=== PATIENT | female | born 1965 | race African-American/Black ===

== ENCOUNTER 2021-01-20 18:19 | Inpatient (IN) | payer MEDICARE, MEDICAID ==
[~2021-01-20] VITALS: Ht 157.5 cm; Wt 88.7 kg
--- NOTE | ~2021-01-20 | HEMODYNAMI ---
PATIENT:RACQUEL COPPOLA MEDICAL RECORD: [id number] : 63 LOCATION:[place] [address] ADMISSION DATE: 01/20/21 Generatedon:115:25 Patient name: RACQUEL COPPOLA Patient #: [id number] SS N: : 1965 Date of study: 01/25/2021 Page: Of Hemodynamic Procedure Report Patient Data Patient Demographics Procedure consent was obtained First Name: RACQUEL Gender: Female Last Name: ABDON : 1965 Patient #: [id number] Age: 55 year(s) Race: Black Additional ID: [id number] Contact details [address]: [address] [place] [address] State: [place] City: [place] Zip code: [address] Past Medical History Allergies Allergen Reaction Date Comments Reported Aspirin 01/25/2021 Other allergy 01/25/2021 cillins, Admission Admission Data Admission Date: 01/20/2021 Admission Time: 22:18 Room #: [facility] Procedure Procedure Types Cath Procedure Peripheral Cath Diagnostic Procedure Venography Extremity Left Upper Ext. Venagram Procedure Description Procedure Date Procedure Date: 01/25/2021 Procedure Start Time: 15:17 Procedure Staff Name Function Charlotte Mullins MD Performing Physician Nola Ríos RT Email Marketing Executive Nancy Mederos RN Nurse Dallas Platt RT Scrub Hemodynamics Rest Pre Cath Intra NCS Post Cath Procedure Log Time Note 14:48:32 Use device set IR Diagnostic 14:48:33 Tegaderm 4 x 4 (1626W) opened to sterile field. 14:48:34 Sterile Angiographic Pack opened to sterile field. 14:48:35 Bag Decanter () opened to sterile field. 14:48:49 - 14:59:08 Time tracking: Regular hours (M-F 7:00 - 5:00) 14:59:25 Plan of Care:Hemodynamics will remain stable., Cardiac rhythm will remain stable., Comfort level will be maintained., Respiratory function will remain adequate., Patient/ family verbilizes understanding of procedure., Procedure tolerated without complication., Recovers from procedure without complications.. 14:59:35 Patient received from XYZE II to IR Alert and oriented. Tansferred to table in Supine position. 14:59:41 Signed procedure consent form obtained from patient. 14:59:47 H&P Date Dictated: 01/25/2021 Within 30 days and on chart.. 14:59:49 Pre-procedure instructions explained to patient. 14:59:49 Pre-op teaching completed and patient verbalized understanding. 14:59:52 Family unavailable. 14:59:54 Patient NPO since Midnight. 15:00:04 Patient allergic to Aspirin 15:00:28 Patient allergic to Other allergycillins, 15:02:10 Patient diabetic? Yes. 15:02:13 If diabetic: On Metformin? No 15:02:14 - 15:02:16 ----Pre-sedation anethsthesia assessment.---- 15:02:21 Previous problem with sedation/anesthesia? No ? 15:02:25 Snore? Yes 15:02:27 Sleep apnea? No 15:02:30 Deviated septum? No 15:02:35 Opens mouth fully? Yes 15:02:37 Sticks out tongue? Yes 15:02:43 Airway obstruction? Yes asthma 15:02:50 Dentures? No ? 15:02:58 Left Arm area was prepped with chlora-prep and draped in sterile leanno n 15:03:00 Alarms reviewed by Eduardo Yap 15:03:02 - 15:04:20 Micropuncture VSI 4FR kit opened to sterile field. 15:17:07 Physician arrived 15:17:08 --------ALL STOP TIME OUT------ 15:17:09 Final Timeout: patient, procedure, and site verified with staff and physician. All members of the team are in agreement. 15:17:25 Fire Safety Assessment: A--An alcohol-based skin anteseptic being used preoperatively., C--Open oxygen or nitrous oxide is being used. 15:17:30 Procedure started. 15:17:30 Full Disclosure recording started 15:17:36 Local anesthetic to left arm with Lidocaine 1% by Charlotte Mullins MD.INITIAL ACCESS ONLY 15:24:46 patient asked for procedure to be stopped. dr. mullins aborted procedure 15:24:51 Procedure ended.(Physican Out) Device Usage Item Name Manufacture Quantity Catalog Hospital Part Current [facility] l Lot# / Number Charge Number Stock Stock Serial# Code Tegaderm 4 x 3M 1 [id number] 4 (1626W) Sterile Cardinal 1 [id number] 5 Angiographic Health Pack Bag Decanter Microtek 1 [id number] [id number] 5 () [employer] Micropuncture VSI VASCULAR 1 [id number] 5 VSI 4FR kit SOLUTIONS Signature Audit Burke Stage Time Signature Unsigned Intra-Procedure 01/25/2021 Nola Ríos 3:25:43 PM RT(R) [facility] [address] [place] [address]
--- NOTE | ~2021-01-20 | EC ---
PATIENT:RACQUEL COPPOLA DATE OF SERVICE: 01/20/21 SEX: F MEDICAL RECORD: [id number] DATE OF : 63 LOCATION:D.M2 D.213 AGE OF PATIENT: 55 ADMISSION DATE: 01/20/21 REFERRING PHYSICIAN: INTERPRETING PHYSICIAN: JERILYN DUNLAP MD ECHOCARDIOGRAM REPORT ECHO CHARGES 4 ECHO COMPLETE Date: 01/23/21 CLINICAL DIAGNOSIS: MRSA ECHOCARDIOGRAPHIC MEASUREMENTS (adult normal given) AC root (d.<3.7cm) 2.3 cm LV Septum d (<1.2 cm> 1.1 cm Valve Excursion 1.2 cm LV Septum (systole) 1.4 cm Left Atria (s.<4.0cm> 3.3 cm LVPW d(<1.2cm) 1.2 cm RV (d.<2.3cm) 2.3 cm LVPW (sytole) 1.7 cm LV diastole(<5.6CM) 3.9 cm MV E-F(>70mm/sec) cm LV systole 2.0 cm LVOT Diameter 1.6 cm MV exc.(>10mm) cm Est.ejection fraction (50-75%) % DOPPLER: LVIT cm/sec A 128 cm/sec E 100 cm/sec LA cm/sec RVSP 42.0 mmHg LVOT 90.0 cm/sec AOP1/2T m/s Asc. Ao 150 cm/sec RVOT 62.0 cm/sec RA cm/sec PA 105 cm/sec AV Gradient Peak 9.0 mmHg AV Mean 4.8 mmHg AV Area 1.2 cm MV Gradient Peak 7.2 mmHg MV Mean 3.3 mmHg MV Area cm COMMENTS: Face Painter: Patricio BEASLEYOE Refrigeration Engine Operator: 5 Dr. Dunlap TAPE# PACS Pericardial Effusion N DATE OF SERVICE: 01/23/2021 CLINICAL DIAGNOSIS: Methicillin-resistant Staphylococcus aureus. INTERPRETATION: Normal left ventricular chamber size and contractile function with ejection fraction of 55% to 60%. Left atrial chamber appears normal. Right atrium and right ventricular chamber size and function appears normal. Aortic valve not well visualized, but appears normal, no aortic stenosis/regurgitation. Mitral valve appears normal. Trace mitral regurgitation. Tricuspid valve appears normal. Trace tricuspid regurgitation. ECHOCARDIOGRAM REPORT [id number] RACQUEL COPPOLA Pulmonic valve not well visualized, but appears normal. No pulmonary regurgitation. No pericardial effusion visualized. IMPRESSION: Normal left ventricular chamber size and contractile function with ejection fraction of 55% to 60%. TRANSINT:[id number] Voice Confirmation ID: [id number] DOCUMENT ID: [id number] JERILYN DUNLAP MD CC: [id number] DICTATION DATE: 01/23/21 1337 OPAL MINER: 01/23/212020 ADM IN [facility] [address] [place] [id number]
[2021-01-20] MEDS ORDERED: KLONOPIN0.5 MG PO (18:36)
[2021-01-20] MEDS ORDERED: ZYLOPRIM300 MG PO (18:36)
[2021-01-20] MEDS ORDERED: LIPITOR10 MG PO (18:36)
[2021-01-20] MEDS ORDERED: COLACE100 MG PO (18:37)
[2021-01-20] MEDS ORDERED: OMEPRAZOLE20 M1 PO (18:37)
[2021-01-20] MEDS ORDERED: HUMULIN 70100 UNIT/1 (18:37)
[2021-01-20] MEDS ORDERED: MULTI-DAY VITAM1 TAB PO (18:38)
[2021-01-20] MEDS ORDERED: LEVEMIR IN100 UNITS/ (18:38)
[2021-01-20] MEDS ORDERED: GABAPENTIN100 MG PO (18:38)
[2021-01-20] MEDS ORDERED: AMITRIPTYLINE100 MG PO (18:39)
[2021-01-20] MEDS ORDERED: ASCORBIC ACID500 MG PO (18:40)
[2021-01-20] MEDS ORDERED: METOPROLOL TART25 MG PO (18:40)
[2021-01-20] MEDS ORDERED: MECLIZINE HCL25 MG PO (18:40)
[2021-01-20 19:43] LABS: BASOPHILS 0.5 % (0-2); EOSINOPHILS 0.3 % (0-7); HEMOGLOBIN 8.7 g/dL (12-16); LYMPHOCYTES 17.1 % (15-50); MCHC 30.1 g/dL (31.0-37.0); MCV 76.5 fL (80.0-100.0); MEAN PLATELET VOLUME 7.8 fL (7.4-10.4); MONOCYTES 10.2 % (2-11); NEUTROPHILS 71.9 % (40-80); PLATELET COUNT 209 10x3/uL (130-400); RDW 20.4 % (11.5-14.5); WBC 14.5 10x3/uL (4.8-10.8)
[2021-01-20 20:00] LABS: CALC OSMOLALITY 299 mosm/kg (275-300); CALCIUM 8.5 mg/dL (8.5-10.1); CARBON DIOXIDE 26.8 mmol/L (21.0-32.0); CHLORIDE - SERUM 100 mmol/L (98-107); CREATININE - SERUM 8.9 mg/dL (0.6-1.3); GLUCOSE 265 mg/dL (74-106); POTASSIUM - SERUM 3.6 mmol/L (3.5-5.1); SODIUM 139 mmol/L (136-145); UREA NITROGEN 48 mg/dL (7-18); eGFR NON AFRICAN AMERICAN 5 mL/min (90-120)
[2021-01-20 20:16] LABS: ALBUMIN 2.3 g/dL (3.4-5.0); ALKALINE PHOSPHATASE 69 U/L (30-120); ALT (SGPT) 7 U/L (10-68); CKMB 0.1 U/L (0.0-3.6); CREATINE KINASE 36 UL (21-215); PRO BNP 4203 pg/mL (0-125); PROTEIN - SERUM 7.6 g/dL (6.4-8.2)
[2021-01-20 20:19] LABS: TROPONIN-I < 0.017 ng/mL (0.000-0.060)
[2021-01-20 20:30] VITALS: BP 121/72
[2021-01-20 21:24] LABS: SARS-CoV-2 ANTIGEN NEGATIVE- SARS-COV-2 (NEGATIVE)
[2021-01-20 21:31] VITALS: BP 120/75
[2021-01-20 22:30] VITALS: BP 110/66
[2021-01-20] MEDS ORDERED: PROTONIX20 MG PO (23:52)
[2021-01-20] MEDS ORDERED: ELIQUIS5 MG PO (23:52)
[2021-01-20] MEDS ORDERED: GABAPENTIN300 MG PO (23:52)
[2021-01-20] MEDS ORDERED: PERCOCET 10-321 EAC1 PO (23:53)
[2021-01-20] MEDS ORDERED: ULTRAM50 MG PO (23:54)
[2021-01-20] MEDS ORDERED: TOUJEO SOL300 UNIT/1 SC (23:55)
[2021-01-20] MEDS ORDERED: PHOSLO667 MG PO (23:55)
[2021-01-20] MEDS ORDERED: HYDROXYZINE HCL50 MG PO (23:56)
[2021-01-20] MEDS ORDERED: KENALOG 0.1 % 115 GM TOPICAL (23:57)
[2021-01-20] MEDS ORDERED: LASIX40 MG PO (23:58)
[2021-01-21 02:18] LABS: CKMB 0.1 U/L (0.0-3.6); CREATINE KINASE 38 UL (21-215); TROPONIN-I < 0.017 ng/mL (0.000-0.060)
[2021-01-21 05:10] VITALS: BP 100/67; BMI 33.9
[2021-01-21 07:23] LABS: BASOPHILS 0.3 % (0-2); EOSINOPHILS 0.9 % (0-7); HEMATOCRIT 27.1 % (36.0-48.0); HEMOGLOBIN 8.4 g/dL (12-16); LYMPHOCYTES 12.9 % (15-50); MCH 23.7 pg (26.0-34.0); MCV 76.5 fL (80.0-100.0); MEAN PLATELET VOLUME 7.6 fL (7.4-10.4); MONOCYTES 10.8 % (2-11); NEUTROPHILS 75.1 % (40-80); PLATELET COUNT 223 10x3/uL (130-400); RBC 3.54 10x6/uL (4.00-5.40); RDW 20.3 % (11.5-14.5); WBC 12.2 10x3/uL (4.8-10.8)
--- NOTE | 2021-01-21 07:40 | NUR ---
Lying in bed with eyes closed, respirations slow/deep/even, rouses easily with verbal stimulus, T/R self ad calvin, cont of B/B with BRPs per self ad calvin, c/o sharp shoulder pain rated 10/10, medicated as ordered (see MAR), call light/phone/water within reach, no s/s of acute distress observed.
[2021-01-21 07:55] LABS: ALBUMIN 2.3 g/dL (3.4-5.0); ALKALINE PHOSPHATASE 72 U/L (30-120); ALT (SGPT) 8 U/L (10-68); CALCIUM 8.9 mg/dL (8.5-10.1); CARBON DIOXIDE 23.9 mmol/L (21.0-32.0); CHLORIDE - SERUM 103 mmol/L (98-107); CKMB 0.2 U/L (0.0-3.6); CREATINE KINASE 30 UL (21-215); CREATININE - SERUM 9.4 mg/dL (0.6-1.3); MAGNESIUM - SERUM 1.8 mg/dL (1.8-2.4); POTASSIUM - SERUM 3.8 mmol/L (3.5-5.1); PROTEIN - SERUM 7.5 g/dL (6.4-8.2); SODIUM 139 mmol/L (136-145); THYROID STIMULATING HORMONE 0.64 uIU/mL (0.36-3.74); UREA NITROGEN 54 mg/dL (7-18); eGFR NON AFRICAN AMERICAN 5 mL/min (90-120)
[2021-01-21 07:56] LABS: CALC OSMOLALITY 298 mosm/kg (275-300); GLUCOSE 204 mg/dL (74-106); TROPONIN-I < 0.017 ng/mL (0.000-0.060)
[2021-01-21 09:00] VITALS: BP 174/94
--- NOTE | 2021-01-21 10:40 | NUR ---
Off unit for dialysis.
--- NOTE | 2021-01-21 11:10 | NUR ---
Back to room, dialysis nurse reports unable to dialize.
[2021-01-21 14:04] VITALS: Ht 157.5 cm; Wt 88.7 kg
[2021-01-21 15:00] VITALS: BP 129/98
--- NOTE | 2021-01-21 15:40 | NUR ---
Lab called with blood culture result of gram + cocci, Notified Dr. Wilson's office nurse, waiting for orders/return call.
--- NOTE | 2021-01-21 19:10 | NUR ---
RECEIVED REPORT, WILL ASSUME CARE OF PT, SLEEPING, NO DISTRESS NOTICED AT THIS TIME, BED IS LOW, SRX2, CALL LIGHT IN REACH, WILL CONTINUE PLAN OF CARE
[2021-01-21 20:09] VITALS: BP 97/62
[2021-01-22 00:15] VITALS: BP 104/54
--- NOTE | 2021-01-22 01:00 | NUR ---
I have reviewed this patient and I concur with the Shift Assessment completed by the Licensed Practical Nurse today this shift.
[2021-01-22 05:21] VITALS: BP 111/80
[2021-01-22 05:30] LABS: CREATININE - SERUM 10.2 mg/dL (0.6-1.3)
--- NOTE | 2021-01-22 07:20 | NUR ---
Lying in bed, respirations slow/deep/even, rouses easily with verbal stimulus, T/R self ad calvin, incont of B/B with incont pads in use, pericare provided with daily bath and PRN, c/o sharp shoulder pain rated 10/10, medicated as ordered (see MAR), call light/phone/water within reach, no s/s of acute distress observed.
[2021-01-22 08:38] VITALS: BP 106/68
[2021-01-22 12:03] VITALS: BP 106/67
[2021-01-22 16:04] VITALS: BP 108/66
[2021-01-22 20:00] VITALS: BP 113/86
--- NOTE | 2021-01-22 21:57 | NUR ---
INITIAL ROUNDS COMPLETED AT 1915 HRS. PT DENIED ANY DISCOMFORT. ASSESSMENT COMPELTED AT [address] PER CM HR 108. KIMMYWICK FOUND ON FLOOR. PATRICK DC'D. IV TO BILAT FA'S SL. O2 2LNC. ST PER CMHR 108. LUNGS DIMINISHED IN BASES BILAT. R CHEST HEMOSPLIT CLEAN, DRY AND INTACT. PM FSBS 238. 8 UNITS INSULIN GIVEN SUB-Q TO ABD. ATTEMPTING DIALYSIS IN RM. PT CURRENTLY RESTING WITH EYES CLOSED. RESP EVEN AND REGULAR. SR UP X2, CALL LIGHT WITHIN REACH.
--- NOTE | 2021-01-23 00:03 | NUR ---
PT RESTING WITH EYES CLOSED. RESP EVEN AND REGULAR. SR UP X1, CALL LIGHT WITHIN REACH.
--- NOTE | 2021-01-23 02:22 | NUR ---
PT AWAKE; NO DISTRESS NOTED. SR UP X1,CALL LIGHT WITHIN REACH.
--- NOTE | 2021-01-23 03:49 | NUR ---
PT RESTING WITH EYES CLOSED. RESP EVEN AND REGULAR. CALL LIGHT WITHIN REACH.
[2021-01-23 04:00] VITALS: BP 116/68
--- NOTE | 2021-01-23 06:08 | NUR ---
VSS THROUGHOUT NIGHT. PT DENIED ANY DISCOMFORT. NEEDS MET; WILL CONTINUE TO MONITOR.
--- NOTE | 2021-01-23 07:11 | NUR ---
RECEIVE SHIFT REPORT. UP WITH ASSIST TO RESTROOM. DENIES ANY OTHER NEEDS AT THIS TIME. ON CONTACT ISOLATION. WILL CONTINUE POC AND SAFETY PRECAUTIONS.
[2021-01-23 08:13] VITALS: BP 109/61
[2021-01-23 09:44] LABS: BASOPHILS 0.5 % (0-2); EOSINOPHILS 1.7 % (0-7); HEMATOCRIT 26.6 % (36.0-48.0); HEMOGLOBIN 8.1 g/dL (12-16); LYMPHOCYTES 21.7 % (15-50); MCH 23.3 pg (26.0-34.0); MCHC 30.6 g/dL (31.0-37.0); MCV 76.1 fL (80.0-100.0); MEAN PLATELET VOLUME 7.6 fL (7.4-10.4); MONOCYTES 11.4 % (2-11); NEUTROPHILS 64.7 % (40-80); RBC 3.49 10x6/uL (4.00-5.40); RDW 20.4 % (11.5-14.5)
[2021-01-23 09:48] LABS: PLATELET COUNT 275 10x3/uL (130-400)
[2021-01-23 09:55] LABS: CREATININE - SERUM 10.9 mg/dL (0.6-1.3); VANCOMYCIN - TROUGH 24.3 ug/mL (10.0-20.0)
[2021-01-23 12:00] VITALS: BP 112/62
[2021-01-23 12:10] LABS: ANION GAP 20.1 mmol/L (8-16); CALCIUM 8.9 mg/dL (8.5-10.1); CARBON DIOXIDE 23.4 mmol/L (21.0-32.0); CREATININE - SERUM 10.9 mg/dL (0.6-1.3); POTASSIUM - SERUM 4.5 mmol/L (3.5-5.1)
[2021-01-23 12:13] LABS: PHOSPHOROUS 7.3 mg/dL (2.5-4.9)
[2021-01-23 16:00] VITALS: BP 104/61
--- NOTE | 2021-01-23 16:25 | NUR ---
RIGHT FOREARM IV OUT, TIP INTACT. RESITED 20G IN RIGHT UPPER ARM.
[2021-01-23 18:14] LABS: BILIRUBIN NEGATIVE (NEGATIVE); KETONE NEGATIVE (NEGATIVE); NITRITE NEGATIVE (NEGATIVE); UROBILINOGEN NORMAL mg/dL (< 2); WHITE CELLS - URINE 0-5 HPF (0-4)
[2021-01-23 18:15] LABS: BACTERIA MODERATE HPF (NONE SEEN); SQUAMOUS EPITHELIAL 0-5 HPF (0-4)
[2021-01-23 18:16] LABS: AMORPHOUS SEDIMENT MODERATE LPF (NONE SEEN)
[2021-01-23 18:30] LABS: UDS - AMPHET NEGATIVE QUAL (NEGATIVE); UDS - BARB NEGATIVE QUAL (NEGATIVE); UDS - BENZO NEGATIVE QUAL (NEGATIVE); UDS - COCAINE NEGATIVE QUAL (NEGATIVE); UDS - OPIATE POSITIVE QUAL (NEGATIVE); UDS - PCP NEGATIVE QUAL (NEGATIVE); UDS - THC NEGATIVE QUAL (NEGATIVE)
[2021-01-23 20:00] VITALS: BP 101/73
[2021-01-24 00:13] VITALS: BP 99/50
[2021-01-24 04:00] VITALS: BP 105/61
--- NOTE | 2021-01-24 07:11 | NUR ---
RECEIVE SHIFT REPORT. RESTING IN BED WITH EYES CLOSED. 2L NASAL CANNULA. SURGERY TODAY. WILL CONTINUE POC AND SAFETY PRECAUTIONS. ON CONTACT ISOLATION.
[2021-01-24 08:12] LABS: BASOPHILS 0.4 % (0-2); EOSINOPHILS 2.2 % (0-7); HEMATOCRIT 27.3 % (36.0-48.0); HEMOGLOBIN 8.4 g/dL (12-16); MCH 23.7 pg (26.0-34.0); MCHC 30.8 g/dL (31.0-37.0); MCV 77.1 fL (80.0-100.0); MEAN PLATELET VOLUME 7.4 fL (7.4-10.4); MONOCYTES 9.2 % (2-11); NEUTROPHILS 60.2 % (40-80); PLATELET COUNT 296 10x3/uL (130-400); RBC 3.55 10x6/uL (4.00-5.40); RDW 20.7 % (11.5-14.5); WBC 10.5 10x3/uL (4.8-10.8)
[2021-01-24 08:30] LABS: CREATININE - SERUM 11.7 mg/dL (0.6-1.3); VANCOMYCIN - TROUGH 26.3 ug/mL (10.0-20.0)
[2021-01-24 09:00] VITALS: BP 92/55
[2021-01-24 12:50] VITALS: BP 104/69
--- NOTE | 2021-01-24 17:00 | NUR ---
RESUMED CARE OF PT FROM SHARON CERNA.
--- NOTE | 2021-01-24 17:52 | NUR ---
RECEIVED REPORT FROM PACU.
[2021-01-24 17:59] VITALS: BP 115/76
--- NOTE | 2021-01-24 18:04 | NUR ---
RECEIVED BACK FROM SURGERY WITH DRESSING SEEN TO RIGHT AND LEFT UPPER CHEST AREA. RIGHT GROIN HEMISPLIT SEEN WITH DRY INTACT DRESSING. RIGHT FA WITH SALINE LOCK.
--- NOTE | 2021-01-24 18:14 | NUR ---
O2 INCREASED TO 5 L HIGH FLOW TO KEEP SAT ABOVE 92%. DENIES NEEDS.
--- NOTE | 2021-01-24 18:51 | NUR ---
PATIENT AT 96% NOW ON 5L HIGH FLOW. SLEEPY BUT EASY TO AROUSE. DENIES NEEDS.
[2021-01-24 20:00] VITALS: BP 94/63
[2021-01-25] VITALS: BP 98/69
--- NOTE | 2021-01-25 03:19 | NUR ---
I have reviewed this patient and I concur with the Shift Assessment completed by the Licensed Practical Nurse today this shift.
[2021-01-25 04:00] VITALS: BP 102/70
[2021-01-25 04:29] LABS: BASOPHILS 0.6 % (0-2); EOSINOPHILS 1.5 % (0-7); HEMATOCRIT 24.3 % (36.0-48.0); LYMPHOCYTES 20.3 % (15-50); MCV 77.3 fL (80.0-100.0); MEAN PLATELET VOLUME 7.2 fL (7.4-10.4); MONOCYTES 8.4 % (2-11); NEUTROPHILS 69.2 % (40-80); PLATELET COUNT 317 10x3/uL (130-400); RBC 3.14 10x6/uL (4.00-5.40); RDW 20.5 % (11.5-14.5); WBC 11.3 10x3/uL (4.8-10.8)
[2021-01-25 04:37] LABS: HEMOGLOBIN 7.5 g/dL (12-16)
[2021-01-25 04:47] LABS: % SATURATION 19 % (15-55); IRON 23 ug/dl (35-150); TOTAL IRON BIND CAPACITY 116 ug/dl (260-445); UNSAT IRON BIND CAPACITY 93 ug/dl (150-375)
[2021-01-25 05:15] LABS: CREATININE - SERUM 12.2 mg/dL (0.6-1.3); URIC ACID 9.3 mg/dL (2.6-7.2); VANCOMYCIN - TROUGH 23.4 ug/mL (10.0-20.0)
[2021-01-25 05:37] LABS: PHOSPHOROUS 10.1 mg/dL (2.5-4.9)
--- NOTE | 2021-01-25 05:47 | NUR ---
CRITICAL LABS CALLED BACK TO [facility].
[2021-01-25 08:14] VITALS: BP 106/69
--- NOTE | 2021-01-25 08:49 | NUR ---
AM MEDS GIVEN AT THIS TIME, BP MEDS HELD D/T PLAN TO DIALYSIS TODAY. PT AWAKENS EASILY, SLOW TO RESPOND. LINENS CHANGED, BRITTANY CARE PROVIDED. RR EVEN NON LABORED , O2 IN PLACE. ASSISTED TO BREAKFAST TRAY SET UP. NO NEDES VOICED. CLWR.
--- NOTE | 2021-01-25 12:57 | NUR ---
Nutrition Follow-up: POD 1 hemosplit placement. Sitting up in bed eating breakfast this AM. PO4 10.1. Noted Phoslo increased. HD TTS. Diet: Regular Wt: 195# (01/24) Labs noted: PO4 10.1, POC Glu 131 Meds noted: Protonix, Phoslo -Change to renal carb consistent diet. -Encourage PO intake and honor food preferences within diet restrictions. -Monitor wt. -RD will follow up within 3 days.
[2021-01-25 16:00] VITALS: BP 193/94
--- NOTE | 2021-01-25 16:16 | NUR ---
NON SKID SOCKS AND WARM BLANKET GIVEN TO PT PER REQUEST. PT LYING IN BED, TAKES MEDICATION PRESCRIBED. RR EVEN NON LABORED, O2 IN PLACE. NO FURTHER NEEDS VOICED. CLWR.
--- NOTE | 2021-01-25 16:33 | NUR ---
OT NOTE: ATTEMPTED EVAL IN AM, HOWEVER, PT RECEIVING DIALYSIS AT THIS TIME. WILL ATTEMPT LATER CHAZ HENDRICKSON, OTR/L
--- NOTE | 2021-01-25 18:07 | NUR ---
DRESSING PLACED TO RIGHT CHEST WALL PER MD ORDER. PT DENIES ANY NEEDS AT THIS TIME. CLWR.
[2021-01-25 20:00] VITALS: BP 136/97
--- NOTE | 2021-01-25 23:34 | NUR ---
PT REFUSES TO WEAR TELEMETRY AT THIS TIME. PT COMPLAINS OF PAIN 8/10 PAIN PRN PAIN MED GIVEN AT 2200. WILL CONTINUE TO MONITOR.
[2021-01-26] VITALS: BP 146/90
--- NOTE | 2021-01-26 01:02 | NUR ---
I have reviewed this patient and I concur with the Shift Assessment completed by the Licensed Practical Nurse today this shift.
[2021-01-26 04:00] VITALS: BP 142/83
[2021-01-26 06:27] LABS: MCH 25.3 pg (26.0-34.0); MCHC 32.2 g/dL (31.0-37.0); MCV 78.7 fL (80.0-100.0); MEAN PLATELET VOLUME 7.1 fL (7.4-10.4); PLATELET COUNT 287 10x3/uL (130-400); RDW 19.1 % (11.5-14.5); WBC 11.1 10x3/uL (4.8-10.8)
[2021-01-26 07:05] LABS: CREATININE - SERUM 8.3 mg/dL (0.6-1.3); HEMOGLOBIN 9.7 g/dL (12-16); RBC 3.81 10x6/uL (4.00-5.40); VANCOMYCIN - TROUGH 18.5 ug/mL (10.0-20.0)
[2021-01-26 08:14] LABS: ANION GAP 16.6 mmol/L (8-16); CALCIUM 9.6 mg/dL (8.5-10.1); CARBON DIOXIDE 25.4 mmol/L (21.0-32.0); CREATININE - SERUM 8.5 mg/dL (0.6-1.3)
--- NOTE | 2021-01-26 08:52 | NUR ---
AM MEDS GIVEN AT THIS TIME, INCLUDING ONE TIME DOSE OF MORPHINE PER MD ORDER. PT AWAKE AND ALERT, PT APPEARS AGGRAVTED THIS MORNING, AND DEMANDING. RR EVEN NON LABORED. PT WILL TAKE O2 ON AND OFF PER HERSELF. PT BREAKFAST TRAY SET UP, NO FURTHER NEEDS VOICED. CLWR.
[2021-01-26 09:00] VITALS: BP 120/76
--- NOTE | 2021-01-26 10:51 | NUR ---
20G IV STARTED TO RIGHT UPPER ARM FOR CT SCAN ORDERED BY . PT TOLERATED WELL.
[2021-01-26 12:00] VITALS: BP 120/70
[2021-01-26 12:10] LABS: EOSINOPHILS 4 % (0-7); LYMPHOCYTES 28 % (15-50); MONOCYTES 6 % (2-11); NEUTROPHILS 60 % (40-80); PLATELET ESTIMATE NORMAL
--- NOTE | 2021-01-26 13:04 | NUR ---
NEW ORDER RECEIVED FROM SHAYE BARNES FOR ZOFRAN D/T PT HAVING N/V.
[2021-01-26 20:00] VITALS: BP 153/81
[2021-01-27] VITALS: BP 116/74
[2021-01-27 05:55] VITALS: BP 151/87
--- NOTE | 2021-01-27 08:06 | NUR ---
AM MEDS GIVEN AT THIS TIME, PT AWAKE AND ALERT, RR EVEN NON LABORED, O2 IN PLACE. PT ANSWERS QUESTIONS APPROP. PT APPEARS MORE ALERT THIS AM. NO NEEDS VOICED. CLWR.
[2021-01-27 08:50] VITALS: BP 145/78
[2021-01-27 11:21] LABS: BASOPHILS 0.8 % (0-2); EOSINOPHILS 1.6 % (0-7); HEMOGLOBIN 10.1 g/dL (12-16); LYMPHOCYTES 17.5 % (15-50); MCHC 31.6 g/dL (31.0-37.0); MCV 79.2 fL (80.0-100.0); MONOCYTES 7.6 % (2-11); NEUTROPHILS 72.5 % (40-80); PLATELET COUNT 315 10x3/uL (130-400); RBC 4.04 10x6/uL (4.00-5.40); RDW 19.5 % (11.5-14.5); WBC 10.6 10x3/uL (4.8-10.8)
[2021-01-27 11:33] LABS: ANION GAP 15.8 mmol/L (8-16); CALCIUM 9.7 mg/dL (8.5-10.1); CREATININE - SERUM 9.9 mg/dL (0.6-1.3); PHOSPHOROUS 8.1 mg/dL (2.5-4.9); POTASSIUM - SERUM 3.8 mmol/L (3.5-5.1); VANCOMYCIN - TROUGH 17.2 ug/mL (10.0-20.0)
[2021-01-27 13:00] VITALS: BP 125/70
[2021-01-27 15:00] VITALS: BP 112/67
--- NOTE | 2021-01-27 15:35 | MORECARE ---
CASE MANAGEMENT DISCHARGE SUMMARY PATIENT: RACQUEL COPPOLA UNIT: [id number] ADM DATE: 01/20/21 AGE: 55 : 64 SEX: F ROOM/BED: D.2134 AUTHOR: ALETHA CRONIN PHYSICIAN: REFERRING PHYSICIAN: VIVIENNE COREAS MD DATE OF SERVICE: 01/27/21 Case Management Discharge Planning Summary DCP REVIEW SUMMARY ANTICIPATED D/C DATE: 01/28/2021 EXPECTED LOS : 8 CASE STATUS: DCP Initiated INITIAL REVIEW: 01/20/2021 INITIAL REVIEWER: Carol Vieira FINAL DISCHARGE DISPOSITION: 06 : Discharged/Trans to Home Under Care of Organized Home Health Service in Anticipation of Skilled Care FINAL REVIEWER: FINAL REVIEW DATE: DCP Focus Questions & Answers QUESTION: ANSWER : PATIENT: RACQUEL COPPOLA ENCOUNTER: [id number] MEDICAL RECORD#: [id number] ADMISSION DATE: 01/20/2021 DISCHARGE DATE: ATTENDING MD: VIVIENNE WU : AGE: 55 MARITAL STATUS: S DC PLAN ID: [id number] FACILITY: [facility] PRINTED ON: 01/27/21 15:34 CT All edits/amendments must be made on the electronic document DICTATION DATE: 01/27/211533 FIRE OFFICER: SINGH 01/27/211533 RPT#: [id number] DC DATE: STATUS: ADM IN [facility] [address] [place] [address] END OF REPORT
--- NOTE | 2021-01-27 15:50 | MORECARE ---
CASE MANAGEMENT DISCHARGE SUMMARY PATIENT: RACQUEL COPPOLA UNIT: [id number] ADM DATE: 01/20/21 AGE: 55 : 64 SEX: F ROOM/BED: D.6464 AUTHOR: ALETHA CRONIN PHYSICIAN: REFERRING PHYSICIAN: VIVIENNE COREAS MD DATE OF SERVICE: 01/27/21 Case Management Discharge Planning Summary COMMENTS ENTERED DATE: 01/27/21 15:37 CT COMMENT TYPE: Discharge Planning REVIEWER: Carol Vieira CM met with patient to complete discharge planning assessment and offer availability of needed services. Patient states that she lives independently at home prior to admission. Pt verified that home environment is safe and has electricity and running water. Pt states that she lives in low income housing and feels it adequately meets her needs. Patient denies need for transportation and state that she have funds for services and medications if needed. Pt states that she uses the [employer] bus for all of her transportation needs. Pt states that her PCP retired and she is in the process of getting another and patient uses [facility] in [place]. CM offered and discussed home health, rehab services, and need for any medical equipment. Patient did express a need for offered services in home health at this time. Transportation home will be provided by [employer]. Patient verbalized understanding of signed forms. IMM served, and signed copy placed on chart. [place] form signed for additional services placed on chart. Will fax referral to [facility]. DCP REVIEW SUMMARY ANTICIPATED D/C DATE: 01/28/2021 EXPECTED LOS : 8 CASE STATUS: DCP Initiated INITIAL REVIEW: 01/20/2021 INITIAL REVIEWER: Carol Vieira FINAL DISCHARGE DISPOSITION: 06 : Discharged/Trans to Home Under Care of Organized Home Health Service in Anticipation of Skilled Care FINAL REVIEWER: FINAL REVIEW DATE: DCP Focus Questions & Answers DCP Screen QUESTION: ANSWER High Risk Factors: : Hosp related to CHF, COPD, DM, End Stage Ds, CVA, CA DCP Evaluation QUESTION: ANSWER Patient and/or caregiver agree upon recommended discharge plan? : Yes Family / Caregiver's ability to cope with chronic illness: : b. Minimal (occasionally not dependable to meet pt's. needs, can meet pt's. basic ADL's) Patient's current cognitive status: : *Oriented to person, place, situation, time and present Patient's ability to cope with chronic illness : d. No chronic illness Does the patient have the ability to pay for or attain post discharge needs / services? : Yes Functional screen assessment: : Basic needs can adequately be met by self Family / Caregiver's ability to cope with chronic illness: : b. Minimal (occasionally not dependable to meet pt's. needs, can meet pt's. basic ADL's) Physical Status: : Independent with ADL's Equipment needed for post hospitalization: : Glucometer Is there a likelihood that the patient will require additional services to return to the preadmission environment? : N/A Living Arrangements: : Home Alone with No Support Results of this evaluation have been discussed with: : Patient Patient with capacity for self-care or can be cared for in same environment as prior to hospitalization? : Yes Living arrangements comments: : Pt has little support at home Baseline cognitive status: : *Oriented to person, place, situation, time and present Physical environment modification needed / anticipated for discharge: : N/A Medication Management: : Patient states can read and understand medication labels Medication Management: : Patient states they do have transportation to [place] medications Medication Management: : Patient states can afford medications Planned post hospital services available for patient? : N/A Pharmacy name(s): : [email or web address] Planned post hospital services covered by insurance plan? : N/A Does Patient have transportation to get home and to follow-up medical appointments when discharged from the hospital? : Yes Would patient like to participate in any Care Coordination programs (if applicable): : Not applicable Comments: : Pt uses [facility] Does the patient have electricity at home? : Yes Does the patient have running water in their house? : Yes Equipment in use: : None Mental health screen: : No mental health history Psychosocial status: : Independent adult (18-64) Abuse/Neglect: : None Resources / Services in place: : None DCP Re-evaluation QUESTION: ANSWER Would patient like to participate in any Care Coordination programs (if applicable): : Not applicable PATIENT: RACQUEL COPPOLA ENCOUNTER: [id number] MEDICAL RECORD#: [id number] ADMISSION DATE: 01/20/2021 DISCHARGE DATE: ATTENDING MD: VIVIENNE WU : AGE: 55 MARITAL STATUS: S DC PLAN ID: [id number] FACILITY: [facility] PRINTED ON: 01/27/21 15:50 CT All edits/amendments must be made on the electronic document DICTATION DATE: 01/27/211549 HOUSEKEEPER SUPERVISOR: SINGH 01/27/211549 RPT#: [id number] DC DATE: STATUS: ADM IN [facility] [address] [place] [address] END OF REPORT
--- NOTE | 2021-01-27 17:03 | NUR ---
OT NOTE: PT COMPLETED BED MOBILITY WITH SBA. PT COMPLETED ADL MOB WITH SBA. PT COMPLETED LB HYGIENE WITH SBA. PT REQUIRED MIN A FOR GARMENT MANAGEMENT. PT COMPLETED SITTING AT EOB WITH SBA. PT COMPLETED HAND HYGIENE WTH SBA. [phone] PAM [employer] C[place]
[2021-01-27 21:34] VITALS: BP 93/60
--- NOTE | 2021-01-28 03:17 | NUR ---
I have reviewed this patient and I concur with the Shift Assessment completed by the Licensed Practical Nurse today this shift.
[2021-01-28 09:00] VITALS: BP 137/56
[2021-01-28 09:53] VITALS: BP 154/89
[2021-01-28 12:00] VITALS: BP 136/61
--- NOTE | 2021-01-28 12:50 | NUR ---
Nutrition Reassessment/Follow-up: Poor PO intake reported. HD TTS. Noted plans to d/c soon. Diet: Renal ADA PO intake: 25% yesterday Wt: 195# (01/24) Adj BW: 131.3# Labs noted: K+ 3.8, BUN 44, Cre 9.9, GFR 5, Glu 129, Ca 9.7, PO4 8.1 Meds noted: Zofran, Phoslo, Protonix, Humulin Est needs: 4051-8868 kcal/day (30-35 kcal/kg adj BW) 70-80 g protein/day (1.2-1.3 g protein/kg adj BW) Fluid: 1000 mL + UOP Nutrition Diagnosis: -Inadequate energy intake R/T Dx, decreased appetite AEB poor PO intake reported. -Altered nutrition-related lab values R/T ESRD, DM AEB BUN 44, Cre 9.9, GFR 5, PO4 8.1, elev Glu. Nutrition Goals: -PO intake >=75% avg of meals/snacks. -Meet est fluid needs without fluid overload. -Stable dry wt. -Glu at or near normal. Nutrition Intervention: -Encourage PO intake and honor food preferences within diet restrictions. -+Nepro with meals. -Need new wt. -RD will follow up within 3-5 days.
--- NOTE | 2021-01-28 16:21 | MORECARE ---
CASE MANAGEMENT DISCHARGE SUMMARY PATIENT: RACQUEL COPPOLA UNIT: [id number] ADM DATE: 01/20/21 AGE: 55 : 63 SEX: F ROOM/BED: D.4804 AUTHOR: ALETHA CRONIN PHYSICIAN: REFERRING PHYSICIAN: VIVIENNE COREAS MD DATE OF SERVICE: 01/28/21 Case Management Discharge Planning Summary COMMENTS ENTERED DATE: 01/28/21 16:11 CT COMMENT TYPE: Discharge Planning REVIEWER: Carol Vieira CM called to schedule [facility] services and was told that she does not have the correct plan listed with Medicaid for services. Pt has been paying song for transportation. Spoke to patient about notifying Medicaid and having her status changed. Clinical docs sent to [facility] for wound care. Transportation with taxi authorized by Roshni Li Director to transport patient home once discharged. ENTERED DATE: 01/27/21 15:37 CT COMMENT TYPE: Discharge Planning REVIEWER: Carol Vieira CM met with patient to complete discharge planning assessment and offer availability of needed services. Patient states that she lives independently at home prior to admission. Pt verified that home environment is safe and has electricity and running water. Pt states that she lives in low income housing and feels it adequately meets her needs. Patient denies need for transportation and state that she have funds for services and medications if needed. Pt states that she uses the [employer] bus for all of her transportation needs. Pt states that her PCP retired and she is in the process of getting another and patient uses [facility] in [place]. CM offered and discussed home health, rehab services, and need for any medical equipment. Patient did express a need for offered services in home health at this time. Transportation home will be provided by [facility]. Patient verbalized understanding of signed forms. IMM served, and signed copy placed on chart. [place] form signed for additional services placed on chart. Will fax referral to [facility]. DCP REVIEW SUMMARY ANTICIPATED D/C DATE: 01/28/2021 EXPECTED LOS : 8 CASE STATUS: DCP Initiated INITIAL REVIEW: 01/20/2021 INITIAL REVIEWER: Carol Vieira FINAL DISCHARGE DISPOSITION: 06 : Discharged/Trans to Home Under Care of Organized Home Health Service in Anticipation of Skilled Care FINAL REVIEWER: FINAL REVIEW DATE: DCP Focus Questions & Answers DCP Screen QUESTION: ANSWER High Risk Factors: : Hosp related to CHF, COPD, DM, End Stage Ds, CVA, CA DCP Evaluation QUESTION: ANSWER Patient and/or caregiver agree upon recommended discharge plan? : Yes Family / Caregiver's ability to cope with chronic illness: : b. Minimal (occasionally not dependable to meet pt's. needs, can meet pt's. basic ADL's) Patient's current cognitive status: : *Oriented to person, place, situation, time and present Patient's ability to cope with chronic illness : d. No chronic illness Does the patient have the ability to pay for or attain post discharge needs / services? : Yes Functional screen assessment: : Basic needs can adequately be met by self Family / Caregiver's ability to cope with chronic illness: : b. Minimal (occasionally not dependable to meet pt's. needs, can meet pt's. basic ADL's) Physical Status: : Independent with ADL's Equipment needed for post hospitalization: : Glucometer Is there a likelihood that the patient will require additional services to return to the preadmission environment? : N/A Living Arrangements: : Home Alone with No Support Results of this evaluation have been discussed with: : Patient Patient with capacity for self-care or can be cared for in same environment as prior to hospitalization? : Yes Living arrangements comments: : Pt has little support at home Baseline cognitive status: : *Oriented to person, place, situation, time and present Physical environment modification needed / anticipated for discharge: : N/A Medication Management: : Patient states can read and understand medication labels Medication Management: : Patient states they do have transportation to pepper picker medications Medication Management: : Patient states can afford medications Planned post hospital services available for patient? : N/A Pharmacy name(s): : [facility] Planned post hospital services covered by insurance plan? : N/A Does Patient have transportation to get home and to follow-up medical appointments when discharged from the hospital? : Yes Would patient like to participate in any Care Coordination programs (if applicable): : Not applicable Comments: : Pt uses [employer] Does the patient have electricity at home? : Yes Does the patient have running water in their house? : Yes Equipment in use: : None Mental health screen: : No mental health history Psychosocial status: : Independent adult (18-64) Abuse/Neglect: : None Resources / Services in place: : None DCP Re-evaluation QUESTION: ANSWER Would patient like to participate in any Care Coordination programs (if applicable): : Not applicable PATIENT: RACQUEL COPPOLA ENCOUNTER: [id number] MEDICAL RECORD#: [id number] ADMISSION DATE: 01/20/2021 DISCHARGE DATE: ATTENDING MD: VIVIENNE WU : AGE: 55 MARITAL STATUS: S DC PLAN ID: [id number] FACILITY: [facility] PRINTED ON: 01/28/21 16:21 CT All edits/amendments must be made on the electronic document DICTATION DATE: 01/28/211620 HOSPITAL COOK: [facility] 01/28/211620 RPT#: [id number] DC DATE: STATUS: ADM IN [facility] [address] [place] [address] END OF REPORT
--- NOTE | 2021-01-28 16:47 | NUR ---
OT NOTE: PT COMPLETED SUPINE TO SIT WITH SBA. PT COMPLETED SITTING AT EOB WITH SPV. PT COMPLETED ADL MOBILITY WITH SPV. PT COMPLETED HAND HYGIENE WITH SPV. PT COMPLETED FACE HYGIENE WITH SBA. 3-155 THANK YOU,TREVOR WILCOX
--- NOTE | 2021-01-31 13:23 | MORECARE ---
CASE MANAGEMENT DISCHARGE SUMMARY PATIENT: RACQUEL COPPOLA UNIT: [id number] ADM DATE: 01/20/21 AGE: 55 : 63 SEX: F ROOM/BED: D.3094 AUTHOR: ALETHA CRONIN PHYSICIAN: REFERRING PHYSICIAN: VIVIENNE COREAS MD DATE OF SERVICE: 01/31/21 Case Management Discharge Planning Summary COMMENTS ENTERED DATE: 01/28/21 16:11 CT COMMENT TYPE: Discharge Planning REVIEWER: Carol Vieira CM called to schedule [facility] services and was told that she does not have the correct plan listed with Medicaid for services. Pt has been paying [employer] for transportation. Spoke to patient about notifying Medicaid and having her status changed. Clinical docs sent to [facility] for wound care. Transportation with taxi authorized by Roshni Li Director to transport patient home once discharged. ENTERED DATE: 01/27/21 15:37 CT COMMENT TYPE: Discharge Planning REVIEWER: Carol Vieira CM met with patient to complete discharge planning assessment and offer availability of needed services. Patient states that she lives independently at home prior to admission. Pt verified that home environment is safe and has electricity and running water. Pt states that she lives in low income housing and feels it adequately meets her needs. Patient denies need for transportation and state that she have funds for services and medications if needed. Pt states that she uses the [employer] bus for all of her transportation needs. Pt states that her PCP retired and she is in the process of getting another and patient uses [facility] in [place]. CM offered and discussed home health, rehab services, and need for any medical equipment. Patient did express a need for offered services in home health at this time. Transportation home will be provided by [facility]. Patient verbalized understanding of signed forms. IMM served, and signed copy placed on chart. [place] form signed for additional services placed on chart. Will fax referral to [facility]. DCP REVIEW SUMMARY ANTICIPATED D/C DATE: 01/28/2021 EXPECTED LOS : 8 CASE STATUS: DCP Initiated INITIAL REVIEW: 01/20/2021 INITIAL REVIEWER: Carol Vieira FINAL DISCHARGE DISPOSITION: 06 : Discharged/Trans to Home Under Care of Organized Home Health Service in Anticipation of Skilled Care FINAL REVIEWER: FINAL REVIEW DATE: DCP Focus Questions & Answers DCP Screen QUESTION: ANSWER High Risk Factors: : Hosp related to CHF, COPD, DM, End Stage Ds, CVA, CA DCP Evaluation QUESTION: ANSWER Patient and/or caregiver agree upon recommended discharge plan? : Yes Family / Caregiver's ability to cope with chronic illness: : b. Minimal (occasionally not dependable to meet pt's. needs, can meet pt's. basic ADL's) Patient's current cognitive status: : *Oriented to person, place, situation, time and present Patient's ability to cope with chronic illness : d. No chronic illness Does the patient have the ability to pay for or attain post discharge needs / services? : Yes Functional screen assessment: : Basic needs can adequately be met by self Family / Caregiver's ability to cope with chronic illness: : b. Minimal (occasionally not dependable to meet pt's. needs, can meet pt's. basic ADL's) Physical Status: : Independent with ADL's Equipment needed for post hospitalization: : Glucometer Is there a likelihood that the patient will require additional services to return to the preadmission environment? : N/A Living Arrangements: : Home Alone with No Support Results of this evaluation have been discussed with: : Patient Patient with capacity for self-care or can be cared for in same environment as prior to hospitalization? : Yes Living arrangements comments: : Pt has little support at home Baseline cognitive status: : *Oriented to person, place, situation, time and present Physical environment modification needed / anticipated for discharge: : N/A Medication Management: : Patient states can read and understand medication labels Medication Management: : Patient states they do have transportation to hot die picker medications Medication Management: : Patient states can afford medications Planned post hospital services available for patient? : N/A Pharmacy name(s): : [facility] Planned post hospital services covered by insurance plan? : N/A Does Patient have transportation to get home and to follow-up medical appointments when discharged from the hospital? : Yes Would patient like to participate in any Care Coordination programs (if applicable): : Not applicable Comments: : Pt uses [employer] Does the patient have electricity at home? : Yes Does the patient have running water in their house? : Yes Equipment in use: : None Mental health screen: : No mental health history Psychosocial status: : Independent adult (18-64) Abuse/Neglect: : None Resources / Services in place: : None DCP Re-evaluation QUESTION: ANSWER Would patient like to participate in any Care Coordination programs (if applicable): : Not applicable PATIENT: RACQUEL COPPOLA ENCOUNTER: [id number] MEDICAL RECORD#: [id number] ADMISSION DATE: 01/20/2021 DISCHARGE DATE: 01/28/2021 ATTENDING MD: VIVIENNE WU : AGE: 55 MARITAL STATUS: S DC PLAN ID: [id number] FACILITY: [facility] PRINTED ON: 01/31/21 13:23 CT All edits/amendments must be made on the electronic document DICTATION DATE: 01/31/21 132 COMMERCIAL OR INSTITUTIONAL CLEANER: SINGH 01/31/21 1323 RPT#: [id number] DC DATE:01/28/21 STATUS: DIS IN [facility] [address] [place] [address] END OF REPORT
== END 2021-01-28 18:16 | disposition home health service (06) | DRG 314 ==
LOC: D.ER 18:19 → D.M2 22:18
PROVIDERS: Emergency Medicine; Internal Medicine; Internal Medicine Nephrology; ADMIT Internal Medicine Nephrology; ATTEND Internal Medicine Nephrology
DX: T82.7XXA Infection and inflammatory reaction due to other cardiac and vascular devices, implants and grafts, initial encounter (principal); A41.9 Sepsis, unspecified organism; J18.9 Pneumonia, unspecified organism; N18.6 End stage renal disease; I13.2 Hypertensive heart and chronic kidney disease with heart failure and with stage 5 chronic kidney disease, or end stage renal disease; E11.22 Type 2 diabetes mellitus with diabetic chronic kidney disease; I50.9 Heart failure, unspecified; Z99.2 Dependence on renal dialysis; Y83.9 Surgical procedure, unspecified as the cause of abnormal reaction of the patient, or of later complication, without mention of misadventure at the time of the procedure